=== PATIENT | male | born 1950 | race Caucasian/White ===

== ENCOUNTER 2016-10-01 16:22 | Emergency (ER) | payer MEDICARE ==
[~2016-10-01] VITALS: Ht 185.4 cm; Wt 66.0 kg
[~2016-10-01 16:22] MED LIST: PARO30TA45 PO; TRAZ50TA18 PO
[2016-10-01 16:23] VITALS: BP 152/80
== END 2016-10-01 16:46 | disposition home or self-care (01) ==
LOC: ED 16:44
DX: F10.229 Alcohol dependence with intoxication, unspecified (principal); F41.9 Anxiety disorder, unspecified; F39 Unspecified mood [affective] disorder
CPT/HCPCS: 99283